=== PATIENT | male | born 1975 | race Caucasian/White ===

== ENCOUNTER 2017-01-23 18:26 | Emergency (ER) | payer BC | END 2017-01-23 18:53 | disposition home or self-care (01) | LOC: ED 18:26 | DX: S61.211A Laceration without foreign body of left index finger without damage to nail, initial encounter (principal); W45.8XXA Other foreign body or object entering through skin, initial encounter; Y92.009 Unspecified place in unspecified non-institutional (private) residence as the place of occurrence of the external cause | CPT/HCPCS: 90715; A4550 ==

== ENCOUNTER → 2018-05-13 | Outpatient (CLI) | payer BC ==
[2017-01-23 18:47] VITALS: BP 125/72
[2018-05-13 16:44] LABS: EOS # 0.1 (0.04-0.40); EOS % 1.3 % (0.0-4.0); HEMATOCRIT 44.5 % (42.0-52.0); HEMOGLOBIN 15.1 g/dL (13.5-18.0); LYMPH# 2.3 (1.50-4.00); MEAN CELL VOLUME 89 fl (78-100); MEAN CORPUSCULAR HEMOGLOBIN 30 pg (27-31); MEAN CORPUSCULAR HGB CONC 34 g/dL (33-37); MEAN PLATELET VOLUME 11.3 fl (7.4-10.4); MONO # 0.8 (0.20-0.80); NEU # 5.7 (1.40-6.50); PLATELET COUNT 242 K/mm3 (130-400); RED BLOOD COUNT 4.98 M/mm3 (4.20-5.60); RED CELL DISTRIBUTION WIDTH 13.5 % (11.5-14.5); WHITE BLOOD COUNT 8.9 K/mm3 (4.8-10.8)
[2018-05-13 18:35] LABS: ALBUMIN 4.2 g/dL (3.5-5.0); BUN/CREATININE RATIO 14.9 (6.0-26.0); CALCIUM 9.1 mg/dL (8.4-10.2); POTASSIUM 4.3 mmol/L (3.6-5.0); TOTAL BILIRUBIN 0.3 mg/dL (0.2-1.3); TOTAL PROTEIN 8.8 g/dL (6.3-8.2)
== END ==
LOC: RAD 16:16
PROVIDERS: Family Medicine
DX: Z00.00 Encounter for general adult medical examination without abnormal findings (principal); R73.9 Hyperglycemia, unspecified

== ENCOUNTER → 2022-05-28 | Outpatient (CLI) | payer BC | LOC: LAB 08:50 | DX: I10 Essential (primary) hypertension (principal) ==

== ENCOUNTER → 2022-05-28 | Outpatient (CLI) | payer BC ==
[2022-05-28 09:08] LABS: BASO # 0.04 K/mm3 (0.02-0.10); EOS # 0.09 K/mm3 (0.04-0.40); HEMATOCRIT 45.8 % (42.0-52.0); HEMOGLOBIN 15.1 g/dL (13.5-18.0); LYMPH# 2.19 K/mm3 (1.50-4.00); MEAN CELL VOLUME 92 fl (78-100); MEAN CORPUSCULAR HEMOGLOBIN 30 pg (27-31); MEAN CORPUSCULAR HGB CONC 33 g/dL (33-37); MEAN PLATELET VOLUME 10.4 fl (7.4-10.4); MONO # 0.89 K/mm3 (0.20-0.80); NEU # 6.01 K/mm3 (1.40-6.50); PLATELET COUNT 271 K/mm3 (130-400); RED BLOOD COUNT 4.96 M/mm3 (4.20-5.60); WHITE BLOOD COUNT 9.3 K/mm3 (4.8-10.8)
[2022-05-28 09:16] LABS: ALBUMIN 4.2 g/dL (3.5-5.0)
[2022-05-28 09:17] LABS: CALCIUM 9.4 mg/dL (8.3-10.5)
[2022-05-28 09:19] LABS: TOTAL PROTEIN 8.1 g/dL (6.4-8.3)
[2022-05-28 09:20] LABS: TOTAL BILIRUBIN 0.4 mg/dL (0.2-1.2)
[2022-05-28 09:31] LABS: URINE APPEARANCE CLEAR; URINE BILIRUBIN NEGATIVE (NEGATIVE); URINE BLOOD NEGATIVE (NEGATIVE); URINE COLOR YELLOW; URINE GLUCOSE NEGATIVE (NEGATIVE); URINE KETONE NEGATIVE (NEGATIVE); URINE LEUKOCYTE ESTERASE NEGATIVE (NEGATIVE); URINE NITRATE NEGATIVE (NEGATIVE); URINE PROTEIN(semi-quant) NEGATIVE (NEGATIVE); URINE UROBILINOGEN NORMAL (NORMAL); URINE WBC 0-1 /hpf (0-3)
== END ==
LOC: RAD 08:56
PROVIDERS: Family Medicine
DX: I10 Essential (primary) hypertension (principal)

== ENCOUNTER → 2022-12-11 | Outpatient (CLI) | payer BC ==
[2022-12-11 22:58] LABS: CREATININE OTHER SOURCE 111 mg/dL (47-110)
[2022-12-12 01:16] LABS: CORTISOL RANDOM 7 ug/dL (3-20)
[2022-12-16 12:32] LABS: ALDOSTERONE, SERUM <4.0 ng/dL (<=21)
[2022-12-17 14:59] LABS: RENIN,PLASMA 0.7 ng/mL/h (())
== END ==
LOC: LAB 13:26
PROVIDERS: Internal Medicine Interventional Cardiology
DX: I10 Essential (primary) hypertension (principal)

== ENCOUNTER → 2024-08-23 | Outpatient (CLI) | payer BC | LOC: RAD 08:24 | DX: M16.12 Unilateral primary osteoarthritis, left hip (principal); M51.360 Other intervertebral disc degeneration, lumbar region with discogenic back pain only ==

== ENCOUNTER 2024-08-30 07:52 | Outpatient (RCR) | payer BC | END 2024-08-31 | disposition home or self-care (01) | LOC: PT | DX: M54.50 Low back pain, unspecified (principal) ==

== ENCOUNTER → 2024-10-17 | Outpatient (CLI) | payer BC | LOC: RAD 07:42 | DX: M47.816 Spondylosis without myelopathy or radiculopathy, lumbar region (principal) ==

== ENCOUNTER → 2024-11-02 | Outpatient (CLI) | payer BC ==
[2024-11-02 09:29] LABS: CALCIUM 9.7 mg/dL (8.3-10.5)
[2024-11-02 22:20] LABS: CREATININE OTHER SOURCE 109 mg/dL (47-110)
== END ==
LOC: LAB 09:11
PROVIDERS: Family Medicine
DX: I10 Essential (primary) hypertension (principal)

== ENCOUNTER → 2024-11-21 | Outpatient (CLI) | payer BC ==
[~2024-11-21] MED LIST: Gadoterate 20 ML VIAL IV ONE; Iohexol 300 - 100 ML VIAL IV ONE
== END ==
LOC: RAD 07:13
DX: M16.12 Unilateral primary osteoarthritis, left hip (principal); S73.192A Other sprain of left hip, initial encounter; M67.854 Other specified disorders of tendon, left hip; M24.852 Other specific joint derangements of left hip, not elsewhere classified
CPT/HCPCS: A9575; Q9967